=== PATIENT | male | born 2000 | race Hispanic/Latino ===

== ENCOUNTER 2023-03-26 19:55 | Emergency (ER) | payer SELFPAY ==
[2023-03-26 20:37] LABS: #Basophils 0.1 10x3/uL (0.0-0.2); #Eosinphils 0.5 10x3/uL (0.0-0.5); #Monocytes 0.7 10x3/uL (0.0-1.1); #Neutrophils 4.7 10x3/uL (1.5-8.4); %Basophils 0.7 % (0.0-2.0); %Eosinophils 5.6 % (0.0-6.0); %Lymphocytes 29.9 % (18.0-47.0); %Monocytes 7.7 % (0.0-10.0); %Neutrophils 55.5 % (40.0-75.0); Hematocrit 46.3 % (38.8-50.0); Hemoglobin 15.7 g/dL (13.5-17.5); Mean Corpuscular HGB CONC 33.9 g/dL (32.0-36.0); Mean Corpuscular Hemoglobin 28.6 pg (27.0-33.0); Mean Corpuscular Volume 84.3 fl (81.2-95.1); Mean Platelet Volume 9.3 fl (7.4-10.4); Platelet Count 275 10x3/uL (150-450); RBC Distribution Width 13.1 % (11.5-14.5); Red Blood Cell (RBC) Count 5.49 10x6/uL (4.32-5.72); White Blood Cell (WBC) Count 8.4 10x3/uL (3.5-10.5)
[2023-03-26 20:49] LABS: Anion Gap 14 mmol/L (10-20); BUN (Urea Nitrogen) 13 mg/dL (8.9-20.6); Calc. Creatinine Clearance 0 mL/min (70-130); Calcium 9.2 mg/dL (7.8-10.44); Carbon Dioxide 26 mmol/L (22-29); Chloride 102 mmol/L (98-107); Estimated GFR 123; Glucose 93 mg/dL (70-105); Potassium 3.8 mmol/L (3.5-5.1); Sodium 138 mmol/L (136-145)
[2023-03-26] MEDS ORDERED: Fluorescein Opthalmic Strip ONE (21:12)
== END 2023-03-26 23:10 | disposition home or self-care (01) ==
LOC: CSHERS 19:55
DX: R00.2 Palpitations (principal); R07.89 Other chest pain
CPT/HCPCS: 36415; 71045; 80048; 85025; 93005

== ENCOUNTER 2023-04-09 22:52 | Emergency (ER) | payer SELFPAY ==
[2023-04-09] MEDS ORDERED: hydrOXYzine Pamoate 25 mg Capsule PO SCH (23:45)
[2023-04-10 00:19] LABS: Troponin I 0.015 ng/mL (< 0.028)
== END 2023-04-10 01:20 | disposition home or self-care (01) ==
LOC: CSHERS 22:52
DX: R07.89 Other chest pain (principal); J45.909 Unspecified asthma, uncomplicated
CPT/HCPCS: 36415; 71045; 84484; Q0177

== ENCOUNTER 2024-02-06 18:48 | Emergency (ER) | payer SELFPAY | END 2024-02-06 23:30 | disposition home or self-care (01) | LOC: CSHERS 18:48 | DX: S61.012A Laceration without foreign body of left thumb without damage to nail, initial encounter (principal); Z55.0 Illiteracy and low-level literacy; W26.0XXA Contact with knife, initial encounter | CPT/HCPCS: 99283 ==

== ENCOUNTER 2024-03-18 17:23 | Emergency (ER) | payer SELFPAY ==
[2024-03-18] MEDS ORDERED: Dexamethasone 10 MG/ML VIAL ONE (18:04)
[2024-03-18] MEDS ORDERED: Fioricet 325/50/40 mg Tablet PO SCH (18:15)
== END 2024-03-18 19:12 | disposition home or self-care (01) ==
LOC: CSHERS 17:23
DX: J06.9 Acute upper respiratory infection, unspecified (principal)
CPT/HCPCS: 71045; 93005; 96372; J1100

== ENCOUNTER 2024-03-28 13:58 | Emergency (ER) | payer SELFPAY ==
[2024-03-28] MEDS ORDERED: Ketorolac Tromethamine 30 MG (1 mL) VIAL ONE (14:31)
[2024-03-28 16:39] LABS: #Basophils 0.06 10x3/uL (0.0-0.2); #Eosinophils 0.82 10x3/uL (0.0-0.5); #Monocytes 1.01 10x3/uL (0.0-1.1); %Basophils 0.7 % (0.0-2.0); %Eosinophils 9.2 % (0.0-6.0); %Lymphocytes 24.4 % (18.0-47.0); %Monocytes 11.3 % (0.0-10.0); Hematocrit 46.8 % (38.8-50.0); Hemoglobin 15.5 g/dL (13.5-17.5); Mean Corpuscular HGB CONC 33.1 g/dL (32.0-36.0); Mean Corpuscular Hemoglobin 28.4 pg (27.0-33.0); Mean Corpuscular Volume 85.9 fL (81.2-95.1); Mean Platelet Volume 9.6 fL (7.4-10.4); Platelet Count 253 10x3/uL (150-450); RBC Distribution Width 13.8 % (11.5-14.5); Red Blood Cell (RBC) Count 5.45 10x6/uL (4.32-5.72); White Blood Cell (WBC) Count 8.9 10x3/uL (3.5-10.5)
[2024-03-28 16:58] LABS: ALT (SGPT) 34 U/L (8-55); AST (SGOT) 28 U/L (5-34); Albumin 4.1 g/dL (3.5-5.0); Alkaline Phosphatase 106 U/L (40-110); Anion Gap 13 mmol/L (10-20); BUN (Urea Nitrogen) 12 mg/dL (8.9-20.6); Bilirubin, Total 0.3 mg/dL (0.2-1.2); Calc. Creatinine Clearance 0 mL/min (70-130); Calcium 9.4 mg/dL (7.8-10.44); Carbon Dioxide 26 mmol/L (22-29); Chloride 103 mmol/L (98-107); Estimated GFR 122; Globulin 3.3 g/dL (2.4-3.5); Glucose 86 mg/dL (70-105); Potassium 4.1 mmol/L (3.5-5.1); Protein, Total 7.4 g/dL (6.0-8.3); Sodium 138 mmol/L (136-145)
[2024-03-28] MEDS ORDERED: Dexamethasone 10 MG/ML VIAL ONE (17:19)
== END 2024-03-28 17:23 | disposition home or self-care (01) ==
LOC: CSHERS 13:58
DX: R51.9 Headache, unspecified (principal)
CPT/HCPCS: 70450; 80053; 85025; 86140; 96361; 96372; 96374; J1100; J1885